=== PATIENT | male | born 1935 | race Caucasian/White ===

== ENCOUNTER → 2016-08-24 | Outpatient (CLI) | payer OTHER ==
[~2016-08-24] MED LIST: ALDACTONE25 MG PO; ASPIRIN; ASPIRIN EC81 M1 PO; AZOR 10/20 MG T1 TAB PO; BENAZEPRIL; BENAZEPRIL HCL40 MG PO; CARVEDILOL25 MG PO; CELEXA10 M1 PO; DONEPEZIL HCL10 MG PO; IBUPROFEN; LEVAQUIN750 MG PO; LEXAPRO PO; LIPITOR PO; LIPITOR20 MG PO; MAG-OX 400400 MG PO; MAPAP500 MG PO; METOPROLOL TAR25 MG PO; NAPROSYN500 MG PO; NITROGLYGERIN0.4 MG SL; PANTOPRAZOLE SO40 MG PO; VOLTAREN75 MG PO; ZESTRIL40 MG PO
--- NOTE | ~2016-08-24 | BD1 ---
[facility] A Service of [facility] & [facility] RADIOLOGY TEXT RESULTS PATIENT: KARMA BAZZI LOCATION: [facility] : 36 UNIT #: [id number] AGE: [address]: Arsenio Lopez MD SEX: M ORDER DR: [id number] [facility] [address] [place], [place] [address] [id number] O MR#: [id number] Acc #: [id number] NAME: KARMA BAZZI. : 1935 SEX: M STUDY DATE/TIME: 08/24/2016 10:46 UNIT: [facility] ROOM: STUDY DESCRIPTION: BD Dexa Bone Dens 1+ Site Attending Physician: Arsenio Lopez M.D. Ordering Physician: Arsenio Lopez M.D. Primary Care Physician: Arsenio Lopez M.D. MEDICAL IMAGING REPORT This report is preliminary unless electronic signature is present EXAM DXA scan 08/24/2016 HISTORY Osteoporosis. Lupus. Anemia. Benign essential hypertension with blood pressure medication. Smoking history for 25 years. FINDINGS Bone mineral density in the lumbar spine from L1-L4 is 1.055 g/cm2, which is 0.3 standard deviation below the mean when compared to the young adult reference population, which is within the range of normal. This is 0.8 standard deviation above the mean when compared to the age-matched population. Bone mineral density in the left femoral neck was 0.759 g/cm2, which is 1.3 standard deviations below the mean when compared to the young adult reference population, which is characteristic of osteopenia. This is 0.3 standard deviations above the mean when compared to the age-matched population. IMPRESSION Bone mineral density in the lumbar spine within the range of normal and within the left hip characteristic of osteopenia. Dictated by... Eduardo Worthington M.D. THIS IS AN ELECTRONICALLY VERIFIED REPORT Eduardo Worthington M.D. at 08/25/2016 7:54 AM DEANNA/jhonny TD: 08/24/2016 13:19 [facility] A Service of [facility] & [facility] RADIOLOGY TEXT RESULTS PATIENT: KARMA BAZZI LOCATION: [facility] : 36 UNIT #: [id number] AGE: [address]: Arsenio Lopez MD SEX: M ORDER DR: FAVIAN #: [id number] MEDICAL IMAGING REPORT Page 1 of 1 COPY
== END | disposition home or self-care (01) ==
LOC: CWCC 10:12
DX: Z13.820 Encounter for screening for osteoporosis (principal); M85.88 Other specified disorders of bone density and structure, other site; Z88.0 Allergy status to penicillin; Z88.2 Allergy status to sulfonamides
CPT/HCPCS: 77080

== ENCOUNTER 2016-10-02 16:16 | Emergency (ER) | payer OTHER ==
--- NOTE | ~2016-10-02 | CR141 ---
[facility] A Service of [facility] & [facility] RADIOLOGY TEXT RESULTS PATIENT: KARMA BAZZI LOCATION: [facility] : 36 UNIT #: [id number] AGE: [address]: Miranda Pitt SEX: M ORDER DR: [id number] [facility] [address] [place], [place] [address] [id number] E MR#: [id number] Acc #: [id number] NAME: KARMA BAZZI. : 1935 SEX: M STUDY DATE/TIME: 10/02/2016 17:14 UNIT: [facility] ROOM: STUDY DESCRIPTION: CR Hand Min 3 Views Lt Attending Physician: Miranda Pitt Pa-C Ordering Physician: Ed Doctor [id number] [facility] Primary Care Physician: Arsenio Lopez M.D. MEDICAL IMAGING REPORT This report is preliminary unless electronic signature is present EXAM Left hand 3 views HISTORY Puncture wound 2 days ago with drill bit. Pain and swelling. FINDINGS Three views left hand demonstrate satisfactory bone alignment. No fracture or opaque soft tissue foreign body. Degenerative changes at the STT joint, [id number]. Mild generalized demineralization. Soft tissue swelling proximal second digit. IMPRESSION 1. No fracture or opaque foreign body. 2. Soft tissue swelling proximal second digit. 3. Mild degenerative changes at the STT joint. Dictated by... Paul Gonzales M.D. THIS IS AN ELECTRONICALLY VERIFIED REPORT Paul Gonzales M.D. at 10/02/2016 11:52 PM KALLI/aleks TD: 10/02/2016 22:08 JOB #: [id number] MEDICAL IMAGING REPORT Page 1 of 1 COPY
== END 2016-10-02 18:25 ==
LOC: CED 16:16 → CFTX 16:53
DX: S61.432A Puncture wound without foreign body of left hand, initial encounter (principal); I10 Essential (primary) hypertension; J44.9 Chronic obstructive pulmonary disease, unspecified; K21.9 Gastro-esophageal reflux disease without esophagitis; Z88.0 Allergy status to penicillin; Z88.2 Allergy status to sulfonamides; Z79.82 Long term (current) use of aspirin; Z79.899 Other long term (current) drug therapy; Z23 Encounter for immunization; X58.XXXA Exposure to other specified factors, initial encounter; Y92.009 Unspecified place in unspecified non-institutional (private) residence as the place of occurrence of the external cause
CPT/HCPCS: 73130; 90471; 90715; 99285